=== PATIENT | male | born 1960 | race Caucasian/White ===

== ENCOUNTER 2021-10-25 18:11 | Emergency (ER) | payer BC ==
[2021-10-25] MEDS ORDERED: Sodium Chloride 0.9% 2.5 ML Syringe FLUSH PRN (18:25)
[2021-10-25] MEDS ORDERED: Sodium Chloride 0.9% 10 ML Syringe FLUSH PRN (18:25)
--- NOTE | 2021-10-25 19:24 | CR ---
INDICATION: Chest pain/shortness of breath. TECHNIQUE: Chest 1 view. COMPARISON: Chest radiograph 06/14/2021. FINDINGS: No focal consolidation, pleural effusion, or pneumothorax. Normal heart size and pulmonary vascularity. The bones are unremarkable. IMPRESSION: No acute cardiopulmonary findings. Dictated by Ceci Farley MD @ 10/25/2021 7:23:38 PM (Electronically Signed)
[2021-10-25 19:29] LABS: BLOOD UREA NITROGEN,BUN 15 mg/dL (7.0-18.0); CARBON DIOXIDE,CO2 25.7 mmol/L (21.0-32.0); CHLORIDE,CL 100 mmol/L (98-107); GLUCOSE RANDOM 103 mg/dL (74-106); SODIUM,NA 137 mmol/L (136-148)
== END 2021-10-25 19:44 | disposition home or self-care (01) ==
LOC: MW.ED 18:11
DX: U07.1 COVID-19 (principal)
CPT/HCPCS: 36415; 71045; 71045-26; 80053; 81001; 84484; 85025; 93005; 99285-25